=== PATIENT | female | born 1930 | race Caucasian/White ===

== ENCOUNTER 2017-09-06 14:17 | Inpatient (IN) | payer MEDICARE ==
[2017-09-06] VITALS (9 sets, daily range): BP systolic 149–166; BP diastolic 57–82
[~2017-09-06] VITALS: Ht 160 cm; Wt 71.5 kg
[~2017-09-06 14:17] MED LIST: B121000 MCG/1 IM; CITALOPRAM20 MG PO; COQ-1030 MG PO; FUROSEMIDE20 M1 PO; K-TAB10 MEQ PO; K-TAB20 MEQ PO; LEVEMIR10 ML SC; LEVOTHYROXIN0.075 M1 PO; LISINOPRIL10 M1 PO; MASON NATURAL600 MG PO; METFORMIN1000 MG PO; MULTI VITAMINS1 TAB PO; OMEPRAZOLE20 M2 PO; TAMSULOSIN HCL0.4 MG PO; TOPROL XL25 MG PO; TOPROL XL50 M1 PO
[2017-09-06 15:02] LABS: BASO % 0.2 % (0.0-1.0); EOS % 0.4 % (1.0-4.0); HEMATOCRIT 24.3 % (37.0-47.0); HEMOGLOBIN 6.4 g/dl (12.0-16.0); LYMPH # 0.7 10*3/uL (1.3-4.4); LYMPH % 6.8 % (27.0-41.0); MEAN CELL VOLUME 72.8 fl (81.0-99.0); MEAN CORPUSCULAR HGB 19.2 pg (27.0-31.0); MEAN CORPUSCULAR HGB CONC 26.3 g/dl (33.0-37.0); MONO # 0.6 10*3/uL (0.1-1.0); MONO % 5.8 % (3.0-9.0); NEUT # 8.8 10*3/uL (2.3-7.9); NEUT % 86.4 % (47.0-73.0); PLATELET COUNT AUTOMATED 272 10*3/uL (130-400); RED BLOOD COUNT 3.34 10*6/uL (4.10-5.10); RED CELL DISTRI WIDTH 17.5 % (0-14.5); WHITE BLOOD COUNT 10.2 10*3/uL (4.8-10.8)
[2017-09-06 15:11] LABS: ACT PARTIAL THROMBO TIME 26.5 SECONDS (20.8-31.5)
[2017-09-06 15:18] LABS: CREATININE 1.72 mg/dL (0.55-1.02); POTASSIUM 4.4 mmol/L (3.5-5.1); TOTAL PROTEIN 6.9 gm/dL (6.4-8.2)
[2017-09-06 15:21] LABS: TROPONIN I 0.473 ng/ml (<0.045)
--- NOTE | 2017-09-06 16:29 | NUR ---
ASPIRIN WAS NOT GIVEN TO PATIENT PER DR LOPEZ, STATES THAT PATIENT IS ANEMIC AND THAT THE ASPIRIN IS NOT TO BE GIVEN AT THIS TIME.
--- NOTE | 2017-09-06 16:40 | NUR ---
REPORT GIVEN TO OTILIA RUTH AT THIS TIME. PATIENT TAKEN TO THE 4TH FLOOR BY THIS NURSE AND MINOO POOL.
--- NOTE | 2017-09-06 16:57 | NUR ---
OTILIA RUTH AT BEDSIDE WITH PATIENT AT THIS TIME.
--- NOTE | 2017-09-06 17:00 | NUR ---
A 86, admitted to , under the services of JANNA Gomez DO with a diagnosis of ANEMIA,RENAL INSUFFICIENCY,ELEVATED TROPONIN. Chief complaint is SHORTNESS OF BREATH. Patient arrived via bed from ER. Monitor applied. Initial assessment completed. Vital signs taken and recorded. JANNA GOMEZ DO notified of admission to the unit. Orders received. See assessment for past medical history, medications and allergies. Patient and/or family oriented to unit. [facility] visitation policy reviewed. Clothing/patient valuable form completed. SEBASTIAN VASQUES R
[2017-09-06 17:09] LABS: IRON 20 ug/dL (50-170); TOTAL IRON BINDING CAPACITY 412 ug/dl (250-450)
--- NOTE | 2017-09-06 17:26 | NUR ---
NOTIFIED OF CRITICAL LACTIC ACID LAB. MAINTENANCE FLUIDS ARE BEING ORDERED.
--- NOTE | 2017-09-06 17:49 | NUR ---
PATIENT IS RESTING IN BED WITH FAMILY AT THE BEDSIDE. PATIENT IS AWAKE AND ALERT AND PLEASANT DURING ASSESSMENT. PATIENT IS FATIGUED BUT ABLE TO RESPOND APPROPRIATELY. NO FURTHER REQUESTS AT THIS TIME. CALL LIGHT SYSTEM REINFORCED.
--- NOTE | 2017-09-06 17:57 | NUR ---
CALLED DR. KRISHNAMURTHY ANSWERING SERVICE CALLED REGARDING CONSULT THEY WILL PAGE HIM.
--- NOTE | 2017-09-06 18:15 | NUR ---
PT RESTING IN BED STARTED BLOOD AT THIS TIME. CALL LIGHT IN REACH.
--- NOTE | 2017-09-06 18:18 | NUR ---
DR. KRISHNAMURTHY CALLED ORDERS GIVEN. GET RECORDS FROM CLEAR.
--- NOTE | 2017-09-06 18:23 | NUR ---
DR. LAUREL AGUILAR
--- NOTE | 2017-09-06 18:41 | NUR ---
DR. CASTRO NOTIFIED OF CRIT TROPONIN LAB, RELAYED MESSAGE TO .
[2017-09-06] MEDS ORDERED: NORCO 5-325 TA1 EACH PO (18:49)
--- NOTE | 2017-09-06 20:35 | NUR ---
DR BETH AWARE OF CRITICAL LACTIC ACID OF 4.0. NO ORDERS
--- NOTE | 2017-09-06 21:32 | NUR ---
DR KRISHNAMURTHY ANSWERING SERVICE AWARE OF CRITICAL LAB RESULT. AWAITING CALL BACK
[2017-09-07] VITALS: BP 142/61
[2017-09-07 00:30] LABS: HEMATOCRIT 26.1 % (37.0-47.0); HEMOGLOBIN 7.4 g/dl (12.0-16.0)
--- NOTE | 2017-09-07 01:05 | NUR ---
DR KRISHNAMURTHY'S ANSWERING SERVICE AWARE OF CRITICAL LAB VALUE
--- NOTE | 2017-09-07 01:10 | NUR ---
DR KRISHNAMURTHY AWARE OF CRITICAL TROPONIN. STATES TO ORDER ANOTHER TROPONIN IN AM
--- NOTE | 2017-09-07 03:18 | NUR ---
PATIENT RESTING IN BED WITH NO S/S OF DISTRESS. RESPS EASY AND REGULAR. BED IN LOWEST POSITION, CALL LIGHT IN REACH
--- NOTE | 2017-09-07 03:52 | NUR ---
24 HR chart check completed.
[2017-09-07 06:53] LABS: BASO % 0.2 % (0.0-1.0); EOS # 0.2 10*3/uL (0.0-0.4); EOS % 2.2 % (1.0-4.0); HEMATOCRIT 26.1 % (37.0-47.0); HEMOGLOBIN 7.4 g/dl (12.0-16.0); LYMPH # 1.3 10*3/uL (1.3-4.4); MEAN CELL VOLUME 75.4 fl (81.0-99.0); MEAN CORPUSCULAR HGB 21.4 pg (27.0-31.0); MEAN CORPUSCULAR HGB CONC 28.4 g/dl (33.0-37.0); MEAN PLATELET VOLUME 11.1 fl (9.6-12.3); MONO # 0.6 10*3/uL (0.1-1.0); MONO % 7.7 % (3.0-9.0); NEUT # 6.1 10*3/uL (2.3-7.9); NEUT % 73.5 % (47.0-73.0); PLATELET COUNT AUTOMATED 236 10*3/uL (130-400); RED BLOOD COUNT 3.46 10*6/uL (4.10-5.10); RED CELL DISTRI WIDTH 17.6 % (0-14.5); WHITE BLOOD COUNT 8.3 10*3/uL (4.8-10.8)
[2017-09-07 06:58] LABS: ALBUMIN 2.7 gm/dl (3.1-4.5); CREATININE 1.63 mg/dL (0.55-1.02); PHOSPHOROUS 3.4 mg/dL (2.5-4.9); POTASSIUM 3.9 mmol/L (3.5-5.1); TOTAL PROTEIN 6.3 gm/dL (6.4-8.2)
[2017-09-07 07:03] LABS: FREE T4 1.33 ng/dl (0.76-1.46); THYROID STIM HORMONE (HS) 1.29 uIU/ml (0.358-4.75)
[2017-09-07 07:06] LABS: TROPONIN I 0.777 ng/ml (<0.045)
--- NOTE | 2017-09-07 07:10 | NUR ---
DR. LOPEZ NOTIFIED OF CRITICAL LAB VALUES.
[2017-09-07 07:14] LABS: VITAMIN D, 25-HYDROXY 24.9 ng/mL (30-100)
[2017-09-07 08:00] VITALS: BP 158/80
--- NOTE | 2017-09-07 09:00 | NUR ---
Xray Tech in to talk to patient. Patient states lives at home with daughter and son in law. There are o steps in the home. Physician: josephine alvarado Pharmacy: [facility] services: none Patient's level of ADLs: MINIMAL ASSIST Patient has working utilities: all working DME: walker Follow-up physician's appointment after d/c: will be made by hospitalist nurse director upon discharge Does patient want to access PORTAL?: no Discharge plan discussed with patient, patient states she lives at home with her daughter and son in law, states she uses a walker for ambulation, discussed with her a short term long-term for rehab prior to going back home, patient refused, also discussed with her VNA and she refused this, patient stated that she and her daughter have been talking about both of these and if they decided on either one she would let case management know. KEL MALIK
[2017-09-07 12:00] VITALS: BP 148/52
[2017-09-07 15:32] LABS: BILIRUBIN NEGATIVE (NEGATIVE); BLOOD 1+ (NEGATIVE); CLARITY CLOUDY (CLEAR); COLOR YELLOW (YELLOW); GLUCOSE NEGATIVE (NEGATIVE); KETONE NEGATIVE (NEGATIVE); SPECIFIC GRAVITY 1.015 (1.005-1.030)
[2017-09-07 15:33] LABS: LEUKO ESTERASE 3+ (NEGATIVE); NITRITE NEGATIVE (NEGATIVE); UROBILINOGEN 0.2 E.U./dl (0.2-1.0)
[2017-09-07 15:43] LABS: BACTERIA 4+; WBC TNTC wbc/hpf (0-5)
[2017-09-07 16:00] VITALS: BP 154/74
[2017-09-07 20:00] VITALS: BP 125/98
--- NOTE | 2017-09-07 20:40 | NUR ---
ANSWERING SERVICE CALLED DOM TO PT. HAVING ABNORMAL HEART RHYTHM, AWAITING CALL BACK.
--- NOTE | 2017-09-07 20:41 | NUR ---
DR. KRISHNAMURTHY RETURNED CALL, SEE NEW ORDERS.
[2017-09-07 21:07] LABS: POTASSIUM 4.1 mmol/L (3.5-5.1)
--- NOTE | 2017-09-07 22:17 | NUR ---
PRN RESTORIL GIVEN FOR PT. C/O INSOMNIA.
--- NOTE | 2017-09-07 23:30 | NUR ---
ASSUMED CARE FOR THIS PT AT THIS TIME. RESPS LABORED. PT DENIES SOB. RESPS 22 ON RA. O2 VIA NC AT 2L APPLIED. ENCOURAGED PT TO LEAVE ON TO HELP SLOW BREATHING. PT AGREEABLE. NO OTHER C/O VOICED.
[2017-09-08] VITALS: BP 160/80
--- NOTE | 2017-09-08 00:54 | NUR ---
24 HR chart check completed.
[2017-09-08 06:35] LABS: BASO % 0.2 % (0.0-1.0); EOS # 0.2 10*3/uL (0.0-0.4); LYMPH % 8.9 % (27.0-41.0); MEAN CELL VOLUME 75.5 fl (81.0-99.0); MEAN CORPUSCULAR HGB 22.2 pg (27.0-31.0); MEAN CORPUSCULAR HGB CONC 29.4 g/dl (33.0-37.0); MEAN PLATELET VOLUME 10.1 fl (9.6-12.3); MONO # 0.6 10*3/uL (0.1-1.0); MONO % 5.7 % (3.0-9.0); NEUT # 9.1 10*3/uL (2.3-7.9); NEUT % 82.8 % (47.0-73.0); PLATELET COUNT AUTOMATED 221 10*3/uL (130-400); RED BLOOD COUNT 4.32 10*6/uL (4.10-5.10); RED CELL DISTRI WIDTH 18.2 % (0-14.5)
[2017-09-08 06:37] LABS: HEMATOCRIT 32.6 % (37.0-47.0); HEMOGLOBIN 9.6 g/dl (12.0-16.0)
--- NOTE | 2017-09-08 06:40 | NUR ---
PT RESTING QUIETLY IN BED AT THIS TIME. NO S/S OF DISTRESS NOTED.
[2017-09-08 06:43] LABS: ALBUMIN 2.9 gm/dl (3.1-4.5); CREATININE 1.75 mg/dL (0.55-1.02); POTASSIUM 3.8 mmol/L (3.5-5.1); TOTAL PROTEIN 6.7 gm/dL (6.4-8.2)
[2017-09-08 08:00] VITALS: BP 184/70
--- NOTE | 2017-09-08 09:06 | NUR ---
MED REC REVIEWED WITH [facility]. NO CHANGES NECESSARY, MEDS UP TO DATE.
--- NOTE | 2017-09-08 09:08 | NUR ---
DR THOMSON NOTIFIED OF UP TO DATE MED REC, AND PT'S BP OF 184/70, GLUCOSE 269 ON CMP, PT NOT CURRENTLY ON ANY HOME MEDS.
--- NOTE | 2017-09-08 09:26 | NUR ---
case management visits with patient, patient very drowsy this am, will talk with family regarding discharge plans
--- NOTE | 2017-09-08 10:13 | NUR ---
URINE CULTURE SENT AT THIS TIME.
[2017-09-08 12:00] VITALS: BP 157/68
--- NOTE | 2017-09-08 12:35 | NUR ---
PT. EVALUATED FOR HOME O2. PULSE OX ON R/A WITH PT. SITTING UP AT BEDSIDE 88%. PT. PLACED ON 2L O2 AND WALKED WITH ASSIST AND WALKER ACROSS THE SALAZAR ON 2L O2. PULSE OX WAS 96%. HEART RATE PRE 96, POST 98. B/P PRE 171/68, POST 167/90. RN NOTIFIED AND [facility] ALSO CALLED. O2 ORDER RECEIVED. RECOVERY PULSE OX 100 ON 2L.
--- NOTE | 2017-09-08 12:55 | NUR ---
DR MAN UPDATED ON PT QUALIFYING FOR CONTINUOUS HOME O2 AT 2L NC.
--- NOTE | 2017-09-08 14:49 | NUR ---
case management talked with patient and daughter regarding short term shelter or VNA. patient couldn't decide what she wanted to do, she and daughter talked and a decision to go to [facility] was made. supply chain planner will send referral to [facility]
--- NOTE | 2017-09-08 15:00 | NUR ---
SPOKE WITH DR MAGDA FLYNN PT'S BLOOD GLUCOSE AND CONCERNS REGARDING NO SLIDING SCALE OR DIABETIC MEDS ORDERED WITH HER STARTING ON STEROIDS, STATES SHE WOULD ORDER A SLIDING SCALE.
--- NOTE | 2017-09-08 15:01 | NUR ---
Patient requested referral be made to [facility], Contacted [facility] and faxed referral. Waiting on PT evaluation/acceptance.
[2017-09-08 16:00] VITALS: BP 178/80
--- NOTE | 2017-09-08 16:46 | NUR ---
DR MAN NOTIFIED OF CRITICALLY HIGH BLOOD GLUCOSE OF 533. ORDER TO FOLLOW SLIDING SCALE.
[2017-09-08 20:00] VITALS: BP 154/78
--- NOTE | 2017-09-08 20:02 | NUR ---
PT. RESTING IN BED WATCHING TELEVISION AT THIS TIME. HOB IS ELEVATED, CALL LIGHT WITHIN REACH, BED LOW AND WHEELS LOCKED. PT. HAS NC DELIVERING 2 LPM WITH EASY AND REGULAR RESPIRATIONS. NO DISTRESS IS NOTED AND NO COMPLAINTS AT THIS TIME WELL. SEE SHIFT ASSESSMENT.
--- NOTE | 2017-09-08 21:55 | NUR ---
SPOKE WITH DR. STEPHANIE DOWELL IN REGARDS TO PT. BLOOD GLUCOSE READING >400, SEE NEW ORDERS.
[2017-09-09] VITALS: BP 156/76
--- NOTE | 2017-09-09 02:57 | NUR ---
24 HR chart check completed.
[2017-09-09 06:16] LABS: HEMATOCRIT 31.9 % (37.0-47.0); HEMOGLOBIN 9.2 g/dl (12.0-16.0); MEAN CELL VOLUME 76.7 fl (81.0-99.0); MEAN CORPUSCULAR HGB 22.1 pg (27.0-31.0); MEAN CORPUSCULAR HGB CONC 28.8 g/dl (33.0-37.0); MEAN PLATELET VOLUME 9.9 fl (9.6-12.3); NUCLEATED RED BLOOD CELL 0.2 % (0.0-0.0); PLATELET COUNT AUTOMATED 201 10*3/uL (130-400); RED BLOOD COUNT 4.16 10*6/uL (4.10-5.10)
[2017-09-09 06:58] LABS: CREATININE 1.78 mg/dL (0.55-1.02); POTASSIUM 3.9 mmol/L (3.5-5.1)
[2017-09-09 07:03] LABS: TOTAL CELLS COUNTED 100 #CELLS
[2017-09-09 07:04] LABS: MICROCYTOSIS SLIGHT; OVALOCYTES FEW; PLATELET SUFFICIENCY NORMAL (NORMAL); POLYCHROMASIA SLIGHT
[2017-09-09 08:00] VITALS: BP 169/81
--- NOTE | 2017-09-09 08:57 | NUR ---
PHYSICAL THERAPY PAtient evaluated on 4, full evaluation to follow. Continue with PT as per plan of care with fall and acute debility precautions. Will require SNF for impaired mobility in order to return to home at (I) PLOF. PAtient is moderate complexity via chart review, tests and evaluation: [id number]. Thank you for this referral. Jaci Palacios,PT
[2017-09-09] MEDS ORDERED: NORCO 5-325 TA1 EACH PO (10:12)
[2017-09-09] MEDS ORDERED: B121000 MCG/1 IM (10:12)
[2017-09-09] MEDS ORDERED: DUONEB 3 MG/3 ML3 M1 NEB (10:12)
[2017-09-09] MEDS ORDERED: Insulin Lispro, Reco SC (10:12)
[2017-09-09] MEDS ORDERED: VITAMIN D-32000 UNI1 PO (10:12)
[2017-09-09] MEDS ORDERED: CIPRO250 MG PO (10:22)
--- NOTE | 2017-09-09 11:02 | NUR ---
Faxed physical therapy eval, PASS/RR completed in [employer] system. Patient has been accepted to [facility] and can go today.
[2017-09-09 12:00] VITALS: BP 156/68
--- NOTE | 2017-09-09 12:00 | NUR ---
PT SITTING UP IN CHAIR, NO DISTRESS NOTED. EXPLAINED TO PT ABOUT PLAN FOR DISCHARGE AND WHEN SHE WILL BE LEAVING FOR [facility], ASKED IF SHE'D LIKE ME TO CALL HER DAUGHTER, STATES SHE WILL CALL HER. NO DISTRESS NOTED, O2 REMAINS INTACT AT 2L NC. CALL LIGHT WITHIN REACH.
--- NOTE | 2017-09-09 13:01 | NUR ---
PHYSICAL THERAPY Thecil seen this PM 1:1 for her therapy treatment. Pt was up in her bedside chair, nurse present taking Pt BS. Transfer sit/stand MOD A X 1, standing balance with wheeled walker MIN A X 1. Then gait 23' X 1, into Pt's bathroom MOD A X 1. Followed by gait total 55' X 1, W/W and MOD CAT SCAN TECHNOLOGIST X 1, with verbal cueing for gait, walker, turn safety MOD A X 1. Pt back up in her bedside chair, call light, phone. End with act Ex to bilateral LE of GENARO vogel's ankle pumps X 20 reps each. OLIVE MARS DATABASE REPORT WRITER.
--- NOTE | 2017-09-09 13:11 | NUR ---
SPOKE WITH PT'S DAUGHTER REGARDING ALLERGY TO CIPRO, STATES SHE BROKE OUT INTO A RASH AND HAD TROUBLE BREATHING, UPDATED DR MAN PT WAS GOING TO BE DISCHARGED ON CIPRO.
[2017-09-09] MEDS ORDERED: DOXYCYCLINE100 M3 PO (13:26)
--- NOTE | 2017-09-09 13:50 | NUR ---
NURSE TO NURSE REPORT GIVEN TO TULIO BROOKS [facility].
--- NOTE | 2017-09-09 14:22 | NUR ---
Discharge instructions reviewed with patient/family. Patient receptive and verbalizes understanding. Follow-up care arranged. Written instructions given to patient/family. IV site removed. Pt left via [facility]. CHRISTOPHER DOBBINS
--- NOTE | 2017-09-10 08:03 | NUR ---
PHYSICAL THERAPY CO-SIGN I approve of the Phyical Therapy notes written above. TONNY THOMAS PT
== END 2017-09-09 14:22 | disposition other institution (70) | DRG 871 ==
LOC: ED 14:17 → EDHOLD 16:02 → 4E 16:02
PROVIDERS: Internal Medicine; Internal Medicine Cardiovascular Disease; Physician Assistant; ADMIT Internal Medicine
PROC: 30233N1 Transfusion of Nonautologous Red Blood Cells into Peripheral Vein, Percutaneous Approach (ICD-10-PCS; principal; 2017-09-06)
DX: A41.9 Sepsis, unspecified organism (principal); E43 Unspecified severe protein-calorie malnutrition; J96.01 Acute respiratory failure with hypoxia; J90 Pleural effusion, not elsewhere classified; J18.9 Pneumonia, unspecified organism; E11.22 Type 2 diabetes mellitus with diabetic chronic kidney disease; N18.4 Chronic kidney disease, stage 4 (severe); E11.65 Type 2 diabetes mellitus with hyperglycemia; Q25.3 Supravalvular aortic stenosis; E11.649 Type 2 diabetes mellitus with hypoglycemia without coma; E87.2 Acidosis; D50.9 Iron deficiency anemia, unspecified; I35.0 Nonrheumatic aortic (valve) stenosis; Z79.4 Long term (current) use of insulin; R74.8 Abnormal levels of other serum enzymes; I12.9 Hypertensive chronic kidney disease with stage 1 through stage 4 chronic kidney disease, or unspecified chronic kidney disease; E03.9 Hypothyroidism, unspecified; E78.5 Hyperlipidemia, unspecified; E53.8 Deficiency of other specified B group vitamins; E66.3 Overweight; Z51.5 Encounter for palliative care; Z66 Do not resuscitate; F03.90 Unspecified dementia, unspecified severity, without behavioral disturbance, psychotic disturbance, mood disturbance, and anxiety; E87.8 Other disorders of electrolyte and fluid balance, not elsewhere classified; E55.9 Vitamin D deficiency, unspecified; Z90.5 Acquired absence of kidney; Z88.2 Allergy status to sulfonamides; Z88.6 Allergy status to analgesic agent; Z88.8 Allergy status to other drugs, medicaments and biological substances; Z79.899 Other long term (current) drug therapy; Z90.49 Acquired absence of other specified parts of digestive tract; Z90.710 Acquired absence of both cervix and uterus; Z87.442 Personal history of urinary calculi; Z82.49 Family history of ischemic heart disease and other diseases of the circulatory system; Z80.0 Family history of malignant neoplasm of digestive organs; Z85.828 Personal history of other malignant neoplasm of skin; Z83.3 Family history of diabetes mellitus; Z68.27 Body mass index [BMI] 27.0-27.9, adult

== ENCOUNTER 2017-11-15 14:06 | Inpatient (IN) | payer MEDICARE ==
[~2017-11-15] VITALS: Ht 162.5 cm; Wt 70.9 kg
--- NOTE | ~2017-11-15 | PROC NOTE ---
[place], [place] PROCEDURE NOTE NAME: DARIA NATH UNIT #: [id number] ROOM: [facility] DOCTOR: CARLOS BLOCK MD,CARLOS BIRTHDATE: [birth year] DOS: 11/19/2017 PROCEDURE: Bronchoscopy. PREOPERATIVE DIAGNOSES: The patient with severe nonproductive cough, not resolving. The patient has maximum medical therapy with acute exacerbation of chronic obstructive pulmonary disease/bronchial asthma. POSTOPERATIVE DIAGNOSES: The patient with severe infection, mucus plug, and endobronchial tree bilaterally with finding of acute tracheobronchitis and obstructive lesions. PROCEDURE DESCRIPTION: Informed consent was obtained for the patient. The patient was brought to the OR and placed in supine position. Conscious sedation administered by Anesthesia Department. After achieving appropriate sedation, airway introduced into the mouth. Bronchoscope advanced to the airway into laryngeal area. Epiglottis and vocal cords were seen. The bronchoscope advanced through vocal cord and tracheal lumen. The tracheal lumen was identified and noted moderate thick mucus secretion suctioned out to the radha level. The radha was noted sharp. Right and left endobronchial tree for the patient was inspected at subsegmental level bilaterally. All the segments of the patient was seen, impacted with very thick mucus, which were cleared out and sent for culture. No obstructive lesions noted. Procedure was well tolerated by the patient without difficulty. Postoperative findings will be discussed with the patient once the patient recovered the effects of acute sedation. CARLOS GONZALEZ MD CM:PROCNOTE:PROCEDURE NOTE [id number] CARLOS BLOCK MD
--- NOTE | ~2017-11-15 | EKG ---
[place], [place] ELECTROCARDIOGRAM REPORT NAME: DARIA NATH UNIT #: [id number] ROOM: [facility] DOCTOR: CARLOS BLOCK MD,CARLOS BIRTHDATE: [birth year] DOS: 11/18/2017 ELECTROCARDIOGRAM TIME: 11:10 a.m. INTERPRETATION: Normal sinus rhythm noted with heart rate 97 beats per minute. Nonspecific ST-T changes were also noted. CARLOS GONZALEZ MD CM:EKGRPT:ELECTROCARDIOGRAM REPORT [id number] CARLOS BLOCK MD
--- NOTE | ~2017-11-15 | PR ---
[place], [place] PROGRESS NOTE NAME: DARIA NATH UNIT #: [id number] ROOM: 501 DOCTOR: CARLOS KWON MD BIRTHDATE: [birth year] DOS: 11/19/2017 SUBJECTIVE: The patient was independently seen and examined with [id number] encounter, history was confirmed. Physical examination was completed. Labs were reviewed. The assessment of the patient for today was personally made and any change in the treatment were personally done as well. The note done by the medical unit secretary was improved. She continued to experience nonproductive cough which has not been improving. She was n.p.o. past midnight. Bronchoscopy was planned today. Continue IV Solu-Medrol and bronchodilator treatment. Denies edema or pain of the lower extremity. Denies symptoms of bloating, nausea, vomiting, constipation. Denies any abnormal skin rashes or lesions. Denies any headache or diplopia. PHYSICAL EXAMINATION: VITAL SIGNS: The patient shows a normal temperature, respiratory rate of 18, heart rate of 96, blood pressure of 142/83-187/93. The pulse oxygen saturation on room air was 95% saturation. HEENT: No acute change. NECK: Supple. CARDIOVASCULAR: S1, S2 audible. LUNGS: Moderate decreased breath sounds with expiratory wheezing without any crackles. ABDOMEN: Soft, nontender. Bowel sounds present. CENTRAL NERVOUS SYSTEM: For the patient was noted without any gross focal neurologic deficit. MUSCULOSKELETAL: No deformities. SKIN: No lesions or rashes. LABORATORY DATA: No labs were done today. IMPRESSION: Persistent acute exacerbation of chronic obstructive pulmonary disease with mucous impaction and acute tracheobronchitis. The patient currently treated with maximal medical therapy, preop for the bronchoscopy today to be done. PLAN OF TREATMENT: Continuation other previous treatment. The patient without any changes. Any modification in the treatment that should be done after bronchoscopy. [place], [place] PROGRESS NOTE NAME: DARIA NATH UNIT #: [id number] ROOM: [facility] DOCTOR: CARLOS KWON MD BIRTHDATE: [birth year] CARLOS GONZALEZ MD CM:PNTRANS 1617 CARLOS BLOCK MD 11/20/173 interface
--- NOTE | ~2017-11-15 | PR ---
[place], [place] PROGRESS NOTE NAME: DARIA NATH UNIT #: [id number] ROOM: 501 DOCTOR: CARLOS BLOCK MD,CARLOS BIRTHDATE: [birth year] DOS: 11/21/2017 PULMONARY PROGRESS REPORT SUBJECTIVE: The patient has been showing continued progressive reduction in respiratory symptom, reduction in the coughing, wheezing. Denies symptoms of chest pain or any abdominal pain. OBJECTIVE: VITAL SIGNS: For the patient which has been recorded showed normal temperature, respiratory rate 20, heart rate of 90, blood pressure 118/76-172/80. The pulse oxygen saturation on room air 100% saturation. HEENT: No acute change. NECK: Supple. CARDIOVASCULAR: S1, S2 audible. LUNGS: The patient has mild expiratory wheezing bilaterally. There were no crackles. ABDOMEN: Soft, nontender. EXTREMITIES: Without any edema. LABORATORY DATA: Cultures of the bronchial washings were noted with moderate growth of Enterobacter cloacae sensitive to several antibiotics including the third generation cephalosporins, ciprofloxacin, and tetracycline. IMPRESSION: 1. Acute tracheobronchitis. The patient with secondary gram-negative infection. The patient currently being treated with the doxycycline, which should continue to improve and resolve the problem. 2. Acute exacerbation of bronchial asthma should also resolve for the patient with a corticosteroid. The dose will be gradually decreased based on the improvement in the respiratory status. Usual care. CARLOS GONZALEZ MD CM:PNTRANS 1511 [id number] CARLOS BLOCK MD 11/21/17 182 interface
--- NOTE | ~2017-11-15 | PR ---
[place], [place] PROGRESS NOTE NAME: DARIA NATH UNIT #: [id number] ROOM: 501 DOCTOR: CARLOS BLOCK MD,CARLOS BIRTHDATE: [birth year] DOS: 11/20/2017 SUBJECTIVE: She has a bronchoscopy done yesterday, reduction in the cough noted from previous level. Denies symptoms of chest pain. Shortness of breath has been improving. Denies any symptoms of chest pain. The patient was noted with a partial reduction in the wheezing as well. OBJECTIVE: VITAL SIGNS: Normal temperature, respirations 18, heart rate 98, blood pressure 161/77. Pulse oxygen saturation on room air 99% saturation. HEENT: Age-related changes. NECK: Supple. CARDIOVASCULAR: S1 audible. LUNGS: Scattered wheezing, no crackles. ABDOMEN: Soft, nontender. EXTREMITIES: Without any edema. LABORATORY DATA: Gram stain bronchial washing today, many white blood cell, few epithelial cells, and moderate gram-positive cocci in pairs. Moderate growth of gram-negative bacilli was isolated in the preliminary bronchial washing culture. The patient is pending final identification and results. IMPRESSION: 1. Acute tracheobronchitis was noted present time with acute tracheobronchitis gram-negative infection. Reduction in symptoms noted with current bronchoscopy. 2. The patient with acute exacerbation of chronic obstructive pulmonary disease as well. PLAN OF TREATMENT: Continue corticosteroids, bronchodilators. No change in antibiotics until the culture results will be finalized. Usual treatment changes to be done based on progression of the illness. CARLOS GONZALEZ MD CM:PNTRANS 1750 7 CARLOS BLOCK MD 11/21/17137 interface
--- NOTE | ~2017-11-15 | CON ---
[place], [place] REPORT OF CONSULTATION NAME: [facility]IA [facility]ATH [id number] UNIT #: [id number] ROOM: 501 DOCTOR: RICHARD BETH DO BIRTHDATE: [birth year] DOS: 11/18/2017 HISTORY OF PRESENT ILLNESS: The patient came to the hospital with a chief complaint of a urinary tract infection and sent to the hospital by her primary care physician. The patient was admitted on November 15 and was started on antibiotics. The patient developed some symptoms of cough and shortness of breath and postnasal drip. Pulmonary care was consulted for optimization of respiratory care. The patient was seen and examined today on 11/18/2017. The patient reports that her shortness of breath and cough and wheezing have been ongoing for about 2 weeks and has had multiple sick contacts with family members over the holidays. The patient denies any chest pain, history of COPD or asthma. The patient denies smoking history. PAST MEDICAL HISTORY: Anxiety, depression, aortic stenosis, B12 deficiency, basal cell carcinoma, chronic kidney disease stage 4, combined systolic and diastolic heart failure, depression, diabetes mellitus with long-term insulin use, GERD, hyperlipidemia, hypertension, hypothyroid, iron deficiency anemia, protein calorie malnutrition, urinary incontinence, vitamin D insufficiency. PAST SURGICAL HISTORY: History of breast biopsy, history of renal stent, history of appendectomy, history of cholecystectomy, history of hysterectomy and unilateral nephrectomy. SOCIAL HISTORY: The patient denies history of alcohol, tobacco or illicit drug use. FAMILY HISTORY: Father had liver cancer. Mother also had liver cancer and diabetes. ALLERGIES: CIPRO, CODEINE and MACROBID. HOME MEDICATIONS: Include vitamin D, citalopram, B12, doxycycline, furosemide, [place], Levemir, DuoNeb, levothyroxine, lisinopril, metoprolol, multivitamin, omeprazole, potassium chloride and CoQ10. REVIEW OF SYSTEMS: GENERAL APPEARANCE: The patient complains of fatigue and general malaise. HEENT: The patient denies vision change, sore throat and earache. The patient denies dysphagia. RESPIRATORY: The patient complains of shortness of breath, cough and wheezing. Denies productive cough. CARDIOVASCULAR: The patient denies palpitations, chest pain, worsening edema in upper or lower extremities. ABDOMEN: The patient denies abdominal pain, change in bowel or bladder habits, blood in the stool or blood in the urine, nausea or vomiting. MUSCULOSKELETAL: The patient denies joint pain. SKIN: The patient denies any rash or erythema. LABORATORY DATA: White count 6.2, hemoglobin 10.8, hematocrit 36.2, platelets 138. Chemistries: Sodium 138, potassium 5.4, chloride 105, carbon dioxide 22, [place], [place] REPORT OF CONSULTATION NAME: DARIA NATH UNIT #: [id number] ROOM: [facility] DOCTOR: RICHARD BETH DO BIRTHDATE: [birth year] BUN 43, creatinine 1.8, glucose 161. Urine cultures are positive for Klebsiella. Blood cultures were negative. Chest x-ray yesterday 11/17/2017 showed small left pleural effusion with mild cardiomegaly, stable from previous imaging. PHYSICAL EXAMINATION: VITAL SIGNS: Temperature 97.5, pulse 93, respirations 20, blood pressure 178/81, pulse ox 99% on room air. GENERAL APPEARANCE: The patient is alert and oriented times 3, in mild distress. HEENT: Head is atraumatic, normocephalic. Eyes are clear. No injection, no drainage. Nares are patent. Oral mucosa is moist. No erythema or discharge in the oropharynx, no exudate. NECK: Supple, nontender. RESPIRATORY: Mild expiratory wheezes and crackles were appreciated bilaterally. No rhonchi. CARDIOVASCULAR: S1, S2 noted. Regular rate and rhythm, no murmurs, gallops or rubs. ABDOMEN: Soft, nontender with positive bowel sounds. EXTREMITIES: No edema, no erythema. NEUROLOGICAL: No focal deficits. Cranial nerves are grossly intact. IMPRESSION: 1. Reactive airway disease with acute exacerbation with pneumonitis. 2. Urinary tract infection, positive for Klebsiella. 3. Diabetic with hyperglycemia. 4. Chronic kidney disease stage 4. 5. Aortic stenosis. 6. Gastroesophageal reflux disease. TREATMENT PLAN: Continue with diuresis. The patient is on doxycycline p.o. and Mucinex b.i.d. 1200, DuoNeb q.4 hours p.r.n. shortness of breath. We will take patient for a bronchoscopy tomorrow to assess for mucus plugs. I anticipate the patient will be ready for discharge the day after the bronchoscopy. Otherwise, no change in current plan. Thank you for this consultation. RICHARD BETH DO [place], [place] REPORT OF CONSULTATION NAME: DARIA NATH UNIT #: [id number] ROOM: [facility] DOCTOR: RICHARD BETH DO BIRTHDATE: [birth year] CARLOS GONZALEZ MD CM:CONSTR:REPORT OF CONSULTATION 1220 11/18/17 1252 interface
--- NOTE | ~2017-11-15 | PR ---
[place], [place] PROGRESS NOTE NAME: DARIA NATH UNIT #: [id number] ROOM: 501 DOCTOR: IGNACIA RICHARD BIRTHDATE: [birth year] DOS: 11/19/2017 SUBJECTIVE: The patient was seen and examined in the surgical suite prior to the bronchoscopy that was performed this morning. The patient was alert and oriented x 3, in no acute distress. The patient has no new complaints today. LABORATORY DATA: No new labs were drawn this morning. Micro, bronchial washing is pending culture. Urine was positive for Klebsiella. Stool was negative for C. diff. Blood cultures remain negative from the 8th. PHYSICAL EXAMINATION: GENERAL: The patient is alert and oriented x 3, in no acute distress. HEENT: Eyes were clear. No injection. Nares were patent. Mucous membranes were moist. NECK: Supple, nontender. CARDIAC: Regular rate and rhythm. No murmurs, gallops or rubs. S1 and S2 noted. PULMONARY: Mild expiratory wheezes. No rales or rhonchi. ABDOMEN: Soft, nontender with positive bowel sounds. EXTREMITIES: No edema, erythema, clubbing or cyanosis ____ extremities. IMPRESSION: 1. Acute on chronic exacerbation of bronchial asthma with mucus plugging, likely secondary to viral infection. 2. Left pleural fluid, likely secondary to pulmonary infection. 3. Persistent severe nonproductive cough. TREATMENT PLAN: Mucus plugs were removed via bronchoscopy. The patient expected to improve dramatically after bronchoscopy. We will evaluate the patient tomorrow for improvement, continue with current respiratory therapy including doxycycline, Lasix, guaifenesin, Solu-Medrol 40 b.i.d., DuoNeb. We will reassess the patient in the morning for improvement of respiratory function. RICHARD BETH DO [place], [place] PROGRESS NOTE NAME: DARIA NATH UNIT #: [id number] ROOM: [facility] DOCTOR: RICHARD BETH DO BIRTHDATE: [birth year] CARLOS GONZALEZ MD CM:MALDONADO 1314 RICHARD BETH DO 11/19/17 2305 interface
--- NOTE | ~2017-11-15 | PR ---
[place], [place] PROGRESS NOTE NAME: DARIA NATH UNIT #: [id number] ROOM: 501 DOCTOR: CARLOS BLOCK MD,CARLOS BIRTHDATE: [birth year] DOS: 11/22/2017 SUBJECTIVE: The patient has been noted without any acute new respiratory complaints at this time. The coughing has been progressively resolving, not completely resolved 100%. The wheezing noted decreased. There were symptoms of chest pain. OBJECTIVE: VITAL SIGNS: Normal temperature, respiratory rate 20, heart rate 96, blood pressure 150/70. The pulse oxygen saturation recorded as 98% on room air. HEENT: No acute change. NECK: Supple. CARDIOVASCULAR: S1, S2 is audible. LUNGS: The patient was noted without any wheezing or crackles at the present time. ABDOMEN: Soft, nontender. EXTREMITIES: The patient was noted without any acute edema. IMPRESSION: Progressive and gradual resolution of acute tracheobronchitis with gram-negative infection and exacerbation of bronchial asthma/chronic obstructive pulmonary disease. PLAN OF TREATMENT: The patient could be discharged home on oral antibiotics, bronchodilators, and other treatment plan. Usual care, other supportive plan of therapy and care as in progress. CARLOS GONZALEZ MD CM:PNTRANS [id number] CARLOS BLOCK MD 11/22/17 2315 interface
--- NOTE | ~2017-11-15 | CON ---
[place], [place] REPORT OF CONSULTATION NAME: [facility]IA [facility]ATH [id number] UNIT #: [id number] ROOM: [facility] DOCTOR: CARLOS BLOCK MDCARLOS BIRTHDATE: [birth year] DOS: 11/18/2017 REQUESTING PHYSICIAN: Hospitalist service. REASON FOR CONSULTATION: For assessment of ongoing respiratory symptom for severe cough and others. The patient was independently seen and examined with [id number] encounter. History was personally completed. The physical examination performed. All the laboratory reviewed. Assessment and management of the patient in today's consultation was personally made. The consultation for the patient which was dictated by the medical surgery nurse was approved as well. HISTORY OF PRESENT ILLNESS: This is an 87-year-old elderly female patient who has been admitted to the hospital under care of hospitalist services. The patient has reported symptoms of urinary tract infection and initially treated with the IV antibiotic. She has reported symptoms of increased shortness of breath, coughing, chest congestion, which occurred prior to that ongoing for the past couple of weeks. The patient has not been reported any symptoms of chest pain or hemoptysis. The patient stated multiple family members has been noted sick with the current illness as well in the last several days over the holidays. REVIEW OF SYSTEMS: Completed by the medical surgery nurse. She agreed with past medical history, surgical history, social history, family history of this patient completed by the medical surgery nurse as well. HOME MEDICATIONS: Reported use of vitamin D, citalopram, doxycycline, ____ prescription, Lasix, [place], Levemir, DuoNeb, Synthroid, lisinopril, metoprolol, multivitamin, CoQ10, omeprazole and potassium chloride. DRUG ALLERGIES: ALLERGY TO CIPROFLOXACIN, CODEINE, SULFA DRUGS AND MACROBID. PHYSICAL EXAMINATION: GENERAL: This 87-year-old female who has been currently noted to be awake and alert without any distress. Height of 5 feet 4 inches, weight of 157 pounds, BMI 27. VITAL SIGNS: Recorded as a normal temperature, respiratory rate recorded at 20, heart rate of 100-93, blood pressure 156/90 and 173/88. Pulse oxygen saturation on room air was noted 99% saturation of oxygen at rest on room air. HEENT: Head was atraumatic. Eyes, nonicterus. NECK: Supple. CARDIOVASCULAR: S1, S2 is audible. LUNGS: The patient was noted with moderate decreased breath sounds noted with expiratory wheezing in the lungs bilaterally. There were no crackles heard. ABDOMEN: Soft, flat, nontender. EXTREMITIES: The patient noted without any edema. MUSCULOSKELETAL: No deformities. CENTRAL NERVOUS SYSTEM: Cranial nerves 2-12 intact. SKIN: No focal deficit. [place], [place] REPORT OF CONSULTATION NAME: DARIA NATH UNIT #: [id number] ROOM: [facility] DOCTOR: CARLOS KWON MD BIRTHDATE: [birth year] LABORATORY DATA: CBC: 11/17/2017, WBC count normal, hemoglobin 10.8, hematocrit 32.6, platelet count normal. The blood culture from 11/15/2017 showed no bacterial growth. Stool for C. diff toxin ____ noted as negative. CMP this morning, BUN 43, creatinine 1.82, glucose 161, potassium 5.4. Admission CMP shows BUN 29, creatinine 1.89, glucose 262 at that time. Review of the chest x-ray that was done on admission 11/15/2017 noted with small left-sided pleural fluid with cardiomegaly as well. Chest x-ray that was completed yesterday ____ personally reviewed with the patient shows pleural fluid remains persistent in the left side, which appeared to be small. There were no pulmonary infiltration. Mild scoliosis of the thoracic spine was visible. The right lung appeared to be clear. IMPRESSION: 1. The patient who has been currently admitted to the hospital noted with ongoing acute exacerbation of bronchial asthma. The patient is very likely with persistent mucous infection not responding to treatment. The symptom of chronicity has been present for the last couple of weeks. It may started with a viral infection including influenza infection as a consideration. 2. Left pleural fluid related to current pulmonary infection. Other etiologies require to be closely monitored for further as well. 3. The patient with severe persistent nonproductive cough as well. There were no past diagnosis of pulmonary disease has been described by the patient in the past. PLAN OF MANAGEMENT: Continue maximizing medical therapy with use of the high dose of Mucinex, bronchodilators, use of the flutter valve. However, it has not been noted effective to treat the current problem. The patient was assessed and will benefit from therapeutic bronchoscopy, which will be done tomorrow morning. The risks and benefits of the procedure have been discussed with patient in detail. Pleural fluid at this time just simply needs to be monitored in case of increase of pleural fluid. The patient would benefit from further assessment such as thoracentesis and analyze the pleural fluid accordingly. Other usual care, plan of therapy and management as well. Addition treatment changes need to be done based on progression of illness. CARLOS GONZALEZ MD CM:CONSTR:REPORT OF CONSULTATION 1613 11/18/17 [id number] interface
[~2017-11-15 14:06] MED LIST changes: +CIPRO250 MG PO; +DOXYCYCLINE100 M3 PO; +DUONEB 3 MG/3 ML3 M1 NEB; +Insulin Lispro, Reco SC; +NORCO 5-325 TA1 EACH PO; +VITAMIN D-32000 UNI1 PO
[2017-11-15 14:44] VITALS: BP 161/69
[2017-11-15 15:33] LABS: BASO % 0.2 % (0.0-1.0); EOS % 0.2 % (1.0-4.0); HEMATOCRIT 38.6 % (37.0-47.0); HEMOGLOBIN 11.9 g/dl (12.0-16.0); LYMPH # 0.9 10*3/uL (1.3-4.4); LYMPH % 19.4 % (27.0-41.0); MEAN CELL VOLUME 89.6 fl (81.0-99.0); MEAN CORPUSCULAR HGB 27.6 pg (27.0-31.0); MEAN CORPUSCULAR HGB CONC 30.8 g/dl (33.0-37.0); MEAN PLATELET VOLUME 10.1 fl (9.6-12.3); MONO # 0.3 10*3/uL (0.1-1.0); MONO % 7.2 % (3.0-9.0); NEUT # 3.3 10*3/uL (2.3-7.9); NEUT % 72.6 % (47.0-73.0); PLATELET COUNT AUTOMATED 138 10*3/uL (130-400); RED BLOOD COUNT 4.31 10*6/uL (4.10-5.10); RED CELL DISTRI WIDTH 19.8 % (0-14.5); WHITE BLOOD COUNT 4.6 10*3/uL (4.8-10.8)
[2017-11-15 15:47] LABS: CREATININE 1.81 mg/dL (0.55-1.02); POTASSIUM 4.5 mmol/L (3.5-5.1); TOTAL PROTEIN 6.9 gm/dL (6.4-8.2)
[2017-11-15 17:13] VITALS: BP 150/75
[2017-11-15] MEDS ORDERED: CITALOPRAM10 MG PO (17:37)
[2017-11-15] MEDS ORDERED: FEOSOL325 MG PO (17:39)
[2017-11-15] MEDS ORDERED: LIPITOR10 MG PO (17:39)
[2017-11-15 18:50] VITALS: BP 163/76
[2017-11-15 19:02] VITALS: BP 163/76
[2017-11-15] MEDS ORDERED: ONE DAILY1 EACH PO (19:35)
[2017-11-15] MEDS ORDERED: [UNRECOGNIZED DRUG - REMARK] PO (19:36)
[2017-11-15] MEDS ORDERED: MASON NATURAL600 MG PO (19:37)
[2017-11-16] VITALS: BP 144/74
[2017-11-16 07:54] LABS: HEMATOCRIT 38.5 % (37.0-47.0); HEMOGLOBIN 11.9 g/dl (12.0-16.0); LYMPH # 0.9 10*3/uL (1.3-4.4); LYMPH % 21.7 % (27.0-41.0); MEAN CELL VOLUME 92.5 fl (81.0-99.0); MEAN CORPUSCULAR HGB 28.6 pg (27.0-31.0); MEAN CORPUSCULAR HGB CONC 30.9 g/dl (33.0-37.0); MEAN PLATELET VOLUME 10.7 fl (9.6-12.3); MONO # 0.1 10*3/uL (0.1-1.0); MONO % 2.3 % (3.0-9.0); NEUT # 3.3 10*3/uL (2.3-7.9); NEUT % 75.8 % (47.0-73.0); PLATELET COUNT AUTOMATED 131 10*3/uL (130-400); RED BLOOD COUNT 4.16 10*6/uL (4.10-5.10); RED CELL DISTRI WIDTH 19.9 % (0-14.5); WHITE BLOOD COUNT 4.3 10*3/uL (4.8-10.8)
[2017-11-16 08:00] VITALS: BP 164/78
[2017-11-16 08:24] LABS: ACT PARTIAL THROMBO TIME 27.8 SECONDS (20.8-31.5); INTERNATIONAL NORM RATIO 0.9 (2.0-3.5)
[2017-11-16 08:31] LABS: ALBUMIN 2.8 gm/dl (3.1-4.5); CREATININE 1.71 mg/dL (0.55-1.02); PHOSPHOROUS 3.6 mg/dL (2.5-4.9); POTASSIUM 5.1 mmol/L (3.5-5.1); TOTAL PROTEIN 6.8 gm/dL (6.4-8.2)
[2017-11-16 12:00] VITALS: BP 149/68
[2017-11-16 14:16] LABS: BILIRUBIN NEGATIVE (NEGATIVE); BLOOD 3+ (NEGATIVE); CLARITY CLOUDY (CLEAR); COLOR YELLOW (YELLOW); GLUCOSE 3+ (NEGATIVE); KETONE TRACE (NEGATIVE); LEUKO ESTERASE 2+ (NEGATIVE); NITRITE NEGATIVE (NEGATIVE); PH 6.5 (5.0-9.0); SPECIFIC GRAVITY 1.015 (1.005-1.030); UROBILINOGEN 0.2 E.U./dl (0.2-1.0)
[2017-11-16 14:29] LABS: BACTERIA 4+; RBC TNTC rbc/hpf (0-2); WBC TNTC wbc/hpf (0-5)
[2017-11-16 16:00] VITALS: BP 133/66
[2017-11-16 20:00] VITALS: BP 160/76
[2017-11-17] VITALS: BP 144/69
[2017-11-17 06:55] LABS: HEMATOCRIT 36.2 % (37.0-47.0); HEMOGLOBIN 10.8 g/dl (12.0-16.0); MEAN CELL VOLUME 92.3 fl (81.0-99.0); MEAN CORPUSCULAR HGB 27.6 pg (27.0-31.0); MEAN CORPUSCULAR HGB CONC 29.8 g/dl (33.0-37.0); MEAN PLATELET VOLUME 10.5 fl (9.6-12.3); PLATELET COUNT AUTOMATED 138 10*3/uL (130-400); RED BLOOD COUNT 3.92 10*6/uL (4.10-5.10); RED CELL DISTRI WIDTH 19.9 % (0-14.5); WHITE BLOOD COUNT 6.2 10*3/uL (4.8-10.8)
[2017-11-17 07:04] LABS: CREATININE 1.82 mg/dL (0.55-1.02); POTASSIUM 5.1 mmol/L (3.5-5.1)
[2017-11-17 07:34] LABS: TOTAL CELLS COUNTED 100 #CELLS
[2017-11-17 07:35] LABS: BURR CELLS FEW; PLATELET SUFFICIENCY NORMAL (NORMAL)
[2017-11-17 07:59] VITALS: BP 146/80
[2017-11-17 12:00] VITALS: BP 168/70
[2017-11-17 16:00] VITALS: BP 155/71
[2017-11-17 20:00] VITALS: BP 173/83
[2017-11-18] VITALS: BP 173/88
[2017-11-18 07:39] LABS: CREATININE 1.82 mg/dL (0.55-1.02); POTASSIUM 5.4 mmol/L (3.5-5.1)
[2017-11-18 07:49] VITALS: BP 178/81
[2017-11-18 12:00] VITALS: BP 166/90
[2017-11-18 16:00] VITALS: BP 174/84
[2017-11-18 20:00] VITALS: BP 166/74
[2017-11-19] VITALS (8 sets, daily range): BP systolic 142–196; BP diastolic 67–112
[2017-11-20] VITALS: BP 155/77
[2017-11-20 07:34] VITALS: BP 166/74
[2017-11-20 11:32] VITALS: BP 161/77
[2017-11-20 14:07] LABS: ACID FAST SMEAR Negative (.); ACID FAST SPEC PROCESSING Concentration (.)
[2017-11-20 15:36] VITALS: BP 170/76
[2017-11-20 20:00] VITALS: BP 158/78
[2017-11-21] VITALS: BP 158/80
[2017-11-21 06:11] LABS: CREATININE 1.58 mg/dL (0.55-1.02); POTASSIUM 4.6 mmol/L (3.5-5.1)
[2017-11-21 08:00] VITALS: BP 172/80
[2017-11-21 12:00] VITALS: BP 118/76
[2017-11-21 16:00] VITALS: BP 133/63
[2017-11-21 20:00] VITALS: BP 143/61
[2017-11-22] VITALS: BP 150/70
[2017-11-22 08:00] VITALS: BP 161/88
[2017-11-22] MEDS ORDERED: CITALOPRAM HYDR20 MG PO (09:56)
[2017-11-22] MEDS ORDERED: AMLODIPINE BESYL5 MG PO (09:56)
[2017-11-22] MEDS ORDERED: PREDNISONE10 MG PO (09:56)
[2017-11-22] MEDS ORDERED: MUCINEX ER600 MG PO (09:56)
[2017-11-22] MEDS ORDERED: DOXYCYCLINE100 M3 PO (09:56)
== END 2017-11-22 13:46 | disposition home or self-care (01) | DRG 689 ==
LOC: ED 14:06 → EDHOLD 16:24 → 5E 16:24
PROVIDERS: Family Medicine; Internal Medicine Critical Care Medicine; Nurse Practitioner Family; Student in an Organized Health Care Education/Training Program
PROC: 0BC98ZZ Extirpation of Matter from Lingula Bronchus, Via Natural or Artificial Opening Endoscopic (ICD-10-PCS; principal; 2017-11-19)
PROC: 0BC78ZZ Extirpation of Matter from Left Main Bronchus, Via Natural or Artificial Opening Endoscopic (ICD-10-PCS; principal; 2017-11-19)
PROC: 0BC88ZZ Extirpation of Matter from Left Upper Lobe Bronchus, Via Natural or Artificial Opening Endoscopic (ICD-10-PCS; principal; 2017-11-19)
PROC: 0BCB8ZZ Extirpation of Matter from Left Lower Lobe Bronchus, Via Natural or Artificial Opening Endoscopic (ICD-10-PCS; principal; 2017-11-19)
PROC: 0BC68ZZ Extirpation of Matter from Right Lower Lobe Bronchus, Via Natural or Artificial Opening Endoscopic (ICD-10-PCS; principal; 2017-11-19)
PROC: 0BC58ZZ Extirpation of Matter from Right Middle Lobe Bronchus, Via Natural or Artificial Opening Endoscopic (ICD-10-PCS; principal; 2017-11-19)
PROC: 0BC48ZZ Extirpation of Matter from Right Upper Lobe Bronchus, Via Natural or Artificial Opening Endoscopic (ICD-10-PCS; principal; 2017-11-19)
PROC: 0BC18ZZ Extirpation of Matter from Trachea, Via Natural or Artificial Opening Endoscopic (ICD-10-PCS; principal; 2017-11-19)
PROC: 0BC38ZZ Extirpation of Matter from Right Main Bronchus, Via Natural or Artificial Opening Endoscopic (ICD-10-PCS; principal; 2017-11-19)
PROC: 0BC28ZZ Extirpation of Matter from Carina, Via Natural or Artificial Opening Endoscopic (ICD-10-PCS; principal; 2017-11-19)
DX: N39.0 Urinary tract infection, site not specified (principal); J18.9 Pneumonia, unspecified organism; E44.0 Moderate protein-calorie malnutrition; T17.890A Other foreign object in other parts of respiratory tract causing asphyxiation, initial encounter; E11.22 Type 2 diabetes mellitus with diabetic chronic kidney disease; J44.0 Chronic obstructive pulmonary disease with (acute) lower respiratory infection; N18.4 Chronic kidney disease, stage 4 (severe); E87.1 Hypo-osmolality and hyponatremia; J45.901 Unspecified asthma with (acute) exacerbation; E11.65 Type 2 diabetes mellitus with hyperglycemia; I50.42 Chronic combined systolic (congestive) and diastolic (congestive) heart failure; I13.0 Hypertensive heart and chronic kidney disease with heart failure and stage 1 through stage 4 chronic kidney disease, or unspecified chronic kidney disease; Q25.3 Supravalvular aortic stenosis; J44.1 Chronic obstructive pulmonary disease with (acute) exacerbation; Z79.2 Long term (current) use of antibiotics; N13.30 Unspecified hydronephrosis; Z68.29 Body mass index [BMI] 29.0-29.9, adult; Z66 Do not resuscitate; I35.0 Nonrheumatic aortic (valve) stenosis; N20.0 Calculus of kidney; E53.8 Deficiency of other specified B group vitamins; K21.9 Gastro-esophageal reflux disease without esophagitis; J20.8 Acute bronchitis due to other specified organisms; D72.810 Lymphocytopenia; Z51.5 Encounter for palliative care; D64.9 Anemia, unspecified; E03.9 Hypothyroidism, unspecified; B96.89 Other specified bacterial agents as the cause of diseases classified elsewhere; E55.9 Vitamin D deficiency, unspecified; B34.9 Viral infection, unspecified; J20.9 Acute bronchitis, unspecified; X58.XXXA Exposure to other specified factors, initial encounter; E78.5 Hyperlipidemia, unspecified; F32.9 Major depressive disorder, single episode, unspecified; F41.8 Other specified anxiety disorders; R32 Unspecified urinary incontinence; B96.1 Klebsiella pneumoniae [K. pneumoniae] as the cause of diseases classified elsewhere; Z16.24 Resistance to multiple antibiotics; Z88.2 Allergy status to sulfonamides; Z88.1 Allergy status to other antibiotic agents; Z88.5 Allergy status to narcotic agent; Z88.8 Allergy status to other drugs, medicaments and biological substances; Z90.49 Acquired absence of other specified parts of digestive tract; Z90.710 Acquired absence of both cervix and uterus; Z90.5 Acquired absence of kidney; Z80.0 Family history of malignant neoplasm of digestive organs; Z83.3 Family history of diabetes mellitus; Z79.4 Long term (current) use of insulin; Z79.1 Long term (current) use of non-steroidal anti-inflammatories (NSAID); Z79.899 Other long term (current) drug therapy; Y93.89 Activity, other specified; Y92.89 Other specified places as the place of occurrence of the external cause; Y99.8 Other external cause status

== ENCOUNTER 2017-12-16 10:59 | Inpatient (IN) | payer MEDICARE ==
[~2017-12-16] VITALS: Ht 160 cm; Wt 72.2 kg
[~2017-12-16 10:59] MED LIST changes: +AMLODIPINE BESYL5 MG PO; +CITALOPRAM HYDR20 MG PO; +CITALOPRAM10 MG PO; +FEOSOL325 MG PO; +LIPITOR10 MG PO; +MUCINEX ER600 MG PO; +ONE DAILY1 EACH PO; +PREDNISONE10 MG PO; +[UNRECOGNIZED DRUG - REMARK] PO
[2017-12-16 11:03] VITALS: BP 148/84
[2017-12-16 13:10] VITALS: BP 138/80
[2017-12-16 15:45] VITALS: BP 141/66
[2017-12-16 16:00] VITALS: BP 141/66
[2017-12-16 17:23] LABS: BASO % 0.2 % (0.0-1.0); EOS % 0.5 % (1.0-4.0); HEMATOCRIT 28.5 % (37.0-47.0); LYMPH # 0.5 10*3/uL (1.3-4.4); LYMPH % 8.6 % (27.0-41.0); MEAN CELL VOLUME 91.3 fl (81.0-99.0); MEAN CORPUSCULAR HGB 28.8 pg (27.0-31.0); MEAN CORPUSCULAR HGB CONC 31.6 g/dl (33.0-37.0); MEAN PLATELET VOLUME 9.5 fl (9.6-12.3); MONO # 0.4 10*3/uL (0.1-1.0); MONO % 5.8 % (3.0-9.0); NEUT # 5.1 10*3/uL (2.3-7.9); NEUT % 84.1 % (47.0-73.0); PLATELET COUNT AUTOMATED 180 10*3/uL (130-400); RED BLOOD COUNT 3.12 10*6/uL (4.10-5.10); RED CELL DISTRI WIDTH 15.9 % (0-14.5); WHITE BLOOD COUNT 6.1 10*3/uL (4.8-10.8)
[2017-12-16 17:35] LABS: ACT PARTIAL THROMBO TIME 30.3 SECONDS (20.8-31.5)
[2017-12-16 17:42] LABS: ALBUMIN 2.1 gm/dl (3.1-4.5); CREATININE 1.74 mg/dL (0.55-1.02); POTASSIUM 4.4 mmol/L (3.5-5.1); TOTAL PROTEIN 5.5 gm/dL (6.4-8.2)
[2017-12-16 17:46] LABS: TROPONIN I 0.064 ng/ml (<0.045)
[2017-12-16 20:00] VITALS: BP 125/95
[2017-12-17] VITALS: BP 140/72
[2017-12-17 06:55] LABS: BASO % 0.3 % (0.0-1.0); EOS # 0.1 10*3/uL (0.0-0.4); EOS % 1.7 % (1.0-4.0); LYMPH # 0.4 10*3/uL (1.3-4.4); LYMPH % 6.9 % (27.0-41.0); MEAN CELL VOLUME 92.7 fl (81.0-99.0); MEAN CORPUSCULAR HGB 28.8 pg (27.0-31.0); MEAN PLATELET VOLUME 10.6 fl (9.6-12.3); MONO # 0.4 10*3/uL (0.1-1.0); MONO % 6.4 % (3.0-9.0); NEUT % 83.9 % (47.0-73.0); PLATELET COUNT AUTOMATED 203 10*3/uL (130-400); RED BLOOD COUNT 3.13 10*6/uL (4.10-5.10); RED CELL DISTRI WIDTH 15.9 % (0-14.5)
[2017-12-17 07:28] LABS: ACT PARTIAL THROMBO TIME 30.8 SECONDS (20.8-31.5)
[2017-12-17 07:29] LABS: POTASSIUM 4.4 mmol/L (3.5-5.1)
[2017-12-17 08:00] VITALS: BP 136/64
[2017-12-17 08:02] LABS: ALBUMIN 2.1 gm/dl (3.1-4.5); CREATININE 1.84 mg/dL (0.55-1.02); PHOSPHOROUS 3.1 mg/dL (2.5-4.9); TOTAL PROTEIN 5.7 gm/dL (6.4-8.2)
[2017-12-17 08:05] LABS: THYROID STIM HORMONE (HS) 10.8 uIU/ml (0.358-4.75)
[2017-12-17 10:03] LABS: VITAMIN D, 25-HYDROXY 13.4 ng/mL (30-100)
[2017-12-17 12:00] VITALS: BP 136/50
[2017-12-17 16:00] VITALS: BP 148/76
[2017-12-17 20:00] VITALS: BP 143/54
[2017-12-18] VITALS: BP 132/56
[2017-12-18 09:29] VITALS: BP 137/56
[2017-12-18 12:00] VITALS: BP 118/50
[2017-12-18 16:00] VITALS: BP 143/70
[2017-12-18 20:00] VITALS: BP 116/62
[2017-12-19] VITALS: BP 127/55
[2017-12-19 05:11] LABS: CREATININE 1.93 mg/dL (0.55-1.02); POTASSIUM 3.7 mmol/L (3.5-5.1)
[2017-12-19 08:00] VITALS: BP 134/57
[2017-12-19 08:23] LABS: BASO % 0.2 % (0.0-1.0); EOS % 0.2 % (1.0-4.0); HEMATOCRIT 33.6 % (37.0-47.0); HEMOGLOBIN 10.5 g/dl (12.0-16.0); LYMPH # 0.5 10*3/uL (1.3-4.4); LYMPH % 4.9 % (27.0-41.0); MEAN CELL VOLUME 91.6 fl (81.0-99.0); MEAN CORPUSCULAR HGB 28.6 pg (27.0-31.0); MEAN CORPUSCULAR HGB CONC 31.3 g/dl (33.0-37.0); MEAN PLATELET VOLUME 9.5 fl (9.6-12.3); MONO # 0.6 10*3/uL (0.1-1.0); MONO % 5.3 % (3.0-9.0); NEUT # 9.2 10*3/uL (2.3-7.9); NEUT % 87.5 % (47.0-73.0); PLATELET COUNT AUTOMATED 255 10*3/uL (130-400); RED BLOOD COUNT 3.67 10*6/uL (4.10-5.10); RED CELL DISTRI WIDTH 15.3 % (0-14.5); WHITE BLOOD COUNT 10.5 10*3/uL (4.8-10.8)
[2017-12-19 08:48] LABS: BILIRUBIN NEGATIVE (NEGATIVE); BLOOD NEGATIVE (NEGATIVE); CLARITY CLOUDY (CLEAR); COLOR YELLOW (YELLOW); GLUCOSE NEGATIVE (NEGATIVE); KETONE NEGATIVE (NEGATIVE); LEUKO ESTERASE 3+ (NEGATIVE); NITRITE NEGATIVE (NEGATIVE); UROBILINOGEN 0.2 E.U./dl (0.2-1.0)
[2017-12-19 09:00] LABS: BACTERIA 3+; WBC TNTC wbc/hpf (0-5)
[2017-12-19 11:41] VITALS: BP 145/50
[2017-12-19 16:00] VITALS: BP 131/54
[2017-12-19 20:00] VITALS: BP 121/59
[2017-12-20] VITALS: BP 116/72
[2017-12-20 04:00] VITALS: BP 130/48
[2017-12-20 07:17] LABS: BASO % 0.3 % (0.0-1.0); EOS # 0.1 10*3/uL (0.0-0.4); EOS % 2.1 % (1.0-4.0); HEMATOCRIT 27.9 % (37.0-47.0); HEMOGLOBIN 8.7 g/dl (12.0-16.0); LYMPH # 0.7 10*3/uL (1.3-4.4); LYMPH % 11.3 % (27.0-41.0); MEAN CELL VOLUME 91.5 fl (81.0-99.0); MEAN CORPUSCULAR HGB 28.5 pg (27.0-31.0); MEAN CORPUSCULAR HGB CONC 31.2 g/dl (33.0-37.0); MEAN PLATELET VOLUME 9.7 fl (9.6-12.3); MONO # 0.4 10*3/uL (0.1-1.0); MONO % 7.1 % (3.0-9.0); NEUT # 4.8 10*3/uL (2.3-7.9); NEUT % 76.9 % (47.0-73.0); PLATELET COUNT AUTOMATED 237 10*3/uL (130-400); RED BLOOD COUNT 3.05 10*6/uL (4.10-5.10); RED CELL DISTRI WIDTH 15.5 % (0-14.5); WHITE BLOOD COUNT 6.2 10*3/uL (4.8-10.8)
[2017-12-20 07:46] LABS: ALBUMIN 1.9 gm/dl (3.1-4.5); CREATININE 1.81 mg/dL (0.55-1.02); PHOSPHOROUS 3.5 mg/dL (2.5-4.9); POTASSIUM 4.1 mmol/L (3.5-5.1); TOTAL PROTEIN 5.6 gm/dL (6.4-8.2)
[2017-12-20 08:00] VITALS: BP 142/60
[2017-12-20 12:00] VITALS: BP 135/70
[2017-12-20 16:00] VITALS: BP 120/96
[2017-12-20 20:00] VITALS: BP 126/61
[2017-12-21] VITALS: BP 130/57
[2017-12-21 07:02] LABS: BASO % 0.2 % (0.0-1.0); EOS # 0.1 10*3/uL (0.0-0.4); EOS % 0.7 % (1.0-4.0); HEMATOCRIT 27.9 % (37.0-47.0); HEMOGLOBIN 8.7 g/dl (12.0-16.0); LYMPH % 10.4 % (27.0-41.0); MEAN CELL VOLUME 91.8 fl (81.0-99.0); MEAN CORPUSCULAR HGB 28.6 pg (27.0-31.0); MEAN CORPUSCULAR HGB CONC 31.2 g/dl (33.0-37.0); MONO # 0.5 10*3/uL (0.1-1.0); NEUT # 7.8 10*3/uL (2.3-7.9); NEUT % 81.7 % (47.0-73.0); PLATELET COUNT AUTOMATED 291 10*3/uL (130-400); RED BLOOD COUNT 3.04 10*6/uL (4.10-5.10); WHITE BLOOD COUNT 9.6 10*3/uL (4.8-10.8)
[2017-12-21 07:32] LABS: CREATININE 1.91 mg/dL (0.55-1.02); POTASSIUM 4.4 mmol/L (3.5-5.1)
[2017-12-21 07:58] VITALS: BP 128/76
[2017-12-21 12:25] VITALS: BP 122/74
[2017-12-21 16:00] VITALS: BP 143/63
[2017-12-21 20:00] VITALS: BP 151/70
[2017-12-21 23:55] VITALS: BP 120/57
[2017-12-22 06:31] LABS: BASO % 0.2 % (0.0-1.0); EOS # 0.1 10*3/uL (0.0-0.4); EOS % 1.2 % (1.0-4.0); HEMATOCRIT 29.2 % (37.0-47.0); HEMOGLOBIN 8.9 g/dl (12.0-16.0); LYMPH # 1.1 10*3/uL (1.3-4.4); LYMPH % 10.9 % (27.0-41.0); MEAN CORPUSCULAR HGB 28.3 pg (27.0-31.0); MEAN CORPUSCULAR HGB CONC 30.5 g/dl (33.0-37.0); MEAN PLATELET VOLUME 9.8 fl (9.6-12.3); MONO # 0.5 10*3/uL (0.1-1.0); MONO % 5.1 % (3.0-9.0); NEUT # 8.3 10*3/uL (2.3-7.9); NEUT % 79.8 % (47.0-73.0); PLATELET COUNT AUTOMATED 284 10*3/uL (130-400); RED BLOOD COUNT 3.14 10*6/uL (4.10-5.10); RED CELL DISTRI WIDTH 15.9 % (0-14.5); WHITE BLOOD COUNT 10.4 10*3/uL (4.8-10.8)
[2017-12-22 07:06] LABS: ALBUMIN 1.9 gm/dl (3.1-4.5); CREATININE 1.87 mg/dL (0.55-1.02); POTASSIUM 4.3 mmol/L (3.5-5.1)
[2017-12-22 07:07] LABS: TOTAL PROTEIN 5.9 gm/dL (6.4-8.2)
[2017-12-22 08:18] VITALS: BP 126/84
[2017-12-22] MEDS ORDERED: ZOSYN 3.373.375 GM/5 IV (10:49)
[2017-12-22 12:25] VITALS: BP 122/74
== END 2017-12-22 15:45 | disposition other institution (70) | DRG 562 ==
LOC: ED 10:59 → EDHOLD 14:39 → 5E 14:39
PROVIDERS: Family Medicine; Internal Medicine; Internal Medicine Nephrology
PROC: B548ZZA Ultrasonography of Superior Vena Cava, Guidance (ICD-10-PCS; principal; 2017-12-21)
PROC: 02HV33Z Insertion of Infusion Device into Superior Vena Cava, Percutaneous Approach (ICD-10-PCS; principal; 2017-12-21)
DX: S42.474A Nondisplaced transcondylar fracture of right humerus, initial encounter for closed fracture (principal); E43 Unspecified severe protein-calorie malnutrition; N18.4 Chronic kidney disease, stage 4 (severe); I13.0 Hypertensive heart and chronic kidney disease with heart failure and stage 1 through stage 4 chronic kidney disease, or unspecified chronic kidney disease; I50.42 Chronic combined systolic (congestive) and diastolic (congestive) heart failure; N39.0 Urinary tract infection, site not specified; Z68.28 Body mass index [BMI] 28.0-28.9, adult; E11.65 Type 2 diabetes mellitus with hyperglycemia; T68.XXXA Hypothermia, initial encounter; K21.9 Gastro-esophageal reflux disease without esophagitis; F32.9 Major depressive disorder, single episode, unspecified; F41.9 Anxiety disorder, unspecified; Z79.4 Long term (current) use of insulin; E78.5 Hyperlipidemia, unspecified; E53.8 Deficiency of other specified B group vitamins; E03.9 Hypothyroidism, unspecified; I35.0 Nonrheumatic aortic (valve) stenosis; E55.9 Vitamin D deficiency, unspecified; D50.9 Iron deficiency anemia, unspecified; R32 Unspecified urinary incontinence; Z96.0 Presence of urogenital implants; S20.229A Contusion of unspecified back wall of thorax, initial encounter; S80.00XA Contusion of unspecified knee, initial encounter; E11.649 Type 2 diabetes mellitus with hypoglycemia without coma; W01.0XXA Fall on same level from slipping, tripping and stumbling without subsequent striking against object, initial encounter; Y93.01 Activity, walking, marching and hiking; E11.22 Type 2 diabetes mellitus with diabetic chronic kidney disease; Z66 Do not resuscitate; Z51.5 Encounter for palliative care; Z87.442 Personal history of urinary calculi; Z88.2 Allergy status to sulfonamides; Z88.1 Allergy status to other antibiotic agents; Z88.8 Allergy status to other drugs, medicaments and biological substances; Z79.899 Other long term (current) drug therapy; Z87.01 Personal history of pneumonia (recurrent); Z90.49 Acquired absence of other specified parts of digestive tract; Z90.5 Acquired absence of kidney; Z90.710 Acquired absence of both cervix and uterus; Z80.8 Family history of malignant neoplasm of other organs or systems; Z83.3 Family history of diabetes mellitus; Z82.49 Family history of ischemic heart disease and other diseases of the circulatory system; Y92.098 Other place in other non-institutional residence as the place of occurrence of the external cause; Y99.8 Other external cause status

== ENCOUNTER 2018-01-17 10:53 | Inpatient (IN) | payer MEDICARE ==
[~2018-01-17] VITALS: Ht 162.6 cm; Wt 73.5 kg
[~2018-01-17 10:53] MED LIST changes: +CO-ENZYME Q101 EACH PO; -LEVEMIR10 ML SC; +LEVEMIR100 UNIT/1 SC; +ZOSYN 3.373.375 GM/5 IV; -[UNRECOGNIZED DRUG - REMARK] PO
[2018-01-17 11:09] VITALS: BP 104/49
[2018-01-17 11:43] LABS: HEMATOCRIT 28.9 % (37.0-47.0); MEAN CELL VOLUME 91.5 fl (81.0-99.0); MEAN CORPUSCULAR HGB 28.5 pg (27.0-31.0); MEAN CORPUSCULAR HGB CONC 31.1 g/dl (33.0-37.0); MEAN PLATELET VOLUME 9.7 fl (9.6-12.3); PLATELET COUNT AUTOMATED 360 10*3/uL (130-400); RED BLOOD COUNT 3.16 10*6/uL (4.10-5.10)
[2018-01-17 11:47] LABS: WHITE BLOOD COUNT 39.6 10*3/uL (4.8-10.8)
[2018-01-17 11:54] LABS: CREATININE 3.89 mg/dL (0.55-1.02); POTASSIUM 5.2 mmol/L (3.5-5.1)
[2018-01-17 12:00] VITALS: BP 108/61
[2018-01-17 12:01] LABS: PLATELET SUFFICIENCY NORMAL (NORMAL); POLYCHROMASIA SLIGHT; TOTAL CELLS COUNTED 100 #CELLS; TOXIC GRANULATION SLIGHT
[2018-01-17 12:28] LABS: BILIRUBIN NEGATIVE (NEGATIVE); BLOOD 3+ (NEGATIVE); CLARITY CLOUDY (CLEAR); COLOR YELLOW (YELLOW); GLUCOSE NEGATIVE (NEGATIVE); KETONE TRACE (NEGATIVE); LEUKO ESTERASE 3+ (NEGATIVE); NITRITE NEGATIVE (NEGATIVE); PH 5.5 (5.0-9.0); UROBILINOGEN 0.2 E.U./dl (0.2-1.0)
[2018-01-17 12:51] LABS: BACTERIA 1+; EPITHELIAL CELLS 15-20; RBC 21-30 rbc/hpf (0-2); WBC TNTC wbc/hpf (0-5); YEAST 4+
[2018-01-17 12:54] LABS: ALBUMIN 1.7 gm/dl (3.1-4.5); BILIRUBIN, DIRECT 0.1 mg/dL (0.0-0.2); TOTAL PROTEIN 6.6 gm/dL (6.4-8.2); TROPONIN I 0.021 ng/ml (<0.045)
[2018-01-17] MEDS ORDERED: DULCOLAX10 M1 SC (13:39)
[2018-01-17] MEDS ORDERED: FLEET MINERAL133 ML PO (13:40)
[2018-01-17] MEDS ORDERED: MOM30 M1 PO (13:43)
[2018-01-17] MEDS ORDERED: PERCOCET 5-3251 EACH PO (13:45)
[2018-01-17] MEDS ORDERED: VITAMIN C500 M8 PO (13:46)
[2018-01-17] MEDS ORDERED: RENAL-VITE TAB0.8 MG PO (13:46)
[2018-01-17] MEDS ORDERED: ZINC-220220 MG PO (13:47)
[2018-01-17 13:49] VITALS: BP 109/45
[2018-01-17] MEDS ORDERED: NOVOLOG100 UNIT/1 SC (13:50)
[2018-01-17 15:40] LABS: POTASSIUM 5.4 mmol/L (3.5-5.1)
[2018-01-17 16:00] VITALS: BP 108/56
[2018-01-17 20:11] VITALS: BP 103/47
[2018-01-18] VITALS (7 sets, daily range): BP systolic 90–149; BP diastolic 44–66
[2018-01-18 08:08] LABS: HEMATOCRIT 27.2 % (37.0-47.0); HEMOGLOBIN 8.5 g/dl (12.0-16.0); MEAN CELL VOLUME 92.5 fl (81.0-99.0); MEAN CORPUSCULAR HGB 28.9 pg (27.0-31.0); MEAN CORPUSCULAR HGB CONC 31.3 g/dl (33.0-37.0); MEAN PLATELET VOLUME 9.4 fl (9.6-12.3); NUCLEATED RED BLOOD CELL 0.1 % (0.0-0.0); PLATELET COUNT AUTOMATED 374 10*3/uL (130-400); RED BLOOD COUNT 2.94 10*6/uL (4.10-5.10); RED CELL DISTRI WIDTH 17.2 % (0-14.5)
[2018-01-18 08:27] LABS: ALBUMIN 1.5 gm/dl (3.1-4.5); CREATININE 4.11 mg/dL (0.55-1.02); PHOSPHOROUS 4.9 mg/dL (2.5-4.9); POTASSIUM 5.1 mmol/L (3.5-5.1); TOTAL PROTEIN 5.7 gm/dL (6.4-8.2)
[2018-01-18 08:42] LABS: BURR CELLS FEW; PLATELET SUFFICIENCY NORMAL (NORMAL); POLYCHROMASIA SLIGHT; TOTAL CELLS COUNTED 100 #CELLS
[2018-01-18 08:44] LABS: WHITE BLOOD COUNT 39.4 10*3/uL (4.8-10.8)
[2018-01-19] VITALS: BP 107/47
[2018-01-19 06:49] LABS: HEMATOCRIT 25.4 % (37.0-47.0); HEMOGLOBIN 7.9 g/dl (12.0-16.0); MEAN CELL VOLUME 91.4 fl (81.0-99.0); MEAN CORPUSCULAR HGB 28.4 pg (27.0-31.0); MEAN CORPUSCULAR HGB CONC 31.1 g/dl (33.0-37.0); MEAN PLATELET VOLUME 9.6 fl (9.6-12.3); PLATELET COUNT AUTOMATED 343 10*3/uL (130-400); RED BLOOD COUNT 2.78 10*6/uL (4.10-5.10); RED CELL DISTRI WIDTH 17.2 % (0-14.5); WHITE BLOOD COUNT 32.9 10*3/uL (4.8-10.8)
[2018-01-19 06:56] LABS: ALBUMIN 1.3 gm/dl (3.1-4.5); CREATININE 4.6 mg/dL (0.55-1.02); PHOSPHOROUS 5.1 mg/dL (2.5-4.9); POTASSIUM 4.4 mmol/L (3.5-5.1)
[2018-01-19 07:29] LABS: BURR CELLS FEW; PLATELET SUFFICIENCY NORMAL (NORMAL); POLYCHROMASIA SLIGHT; TOTAL CELLS COUNTED 100 #CELLS
[2018-01-19 08:00] VITALS: BP 118/50
[2018-01-19 12:00] VITALS: BP 118/87
[2018-01-19 16:00] VITALS: BP 102/51; BP 121/56
[2018-01-19 20:00] VITALS: BP 115/53
[2018-01-20] VITALS: BP 110/55
[2018-01-20 07:20] LABS: HEMATOCRIT 26.1 % (37.0-47.0); HEMOGLOBIN 8.3 g/dl (12.0-16.0); MEAN CELL VOLUME 90.9 fl (81.0-99.0); MEAN CORPUSCULAR HGB 28.9 pg (27.0-31.0); MEAN CORPUSCULAR HGB CONC 31.8 g/dl (33.0-37.0); PLATELET COUNT AUTOMATED 321 10*3/uL (130-400); RED BLOOD COUNT 2.87 10*6/uL (4.10-5.10); RED CELL DISTRI WIDTH 17.3 % (0-14.5)
[2018-01-20 07:33] LABS: ALBUMIN 1.3 gm/dl (3.1-4.5); CREATININE 5.12 mg/dL (0.55-1.02); PHOSPHOROUS 4.3 mg/dL (2.5-4.9); POTASSIUM 3.8 mmol/L (3.5-5.1)
[2018-01-20 08:00] VITALS: BP 94/55
[2018-01-20 08:05] LABS: BURR CELLS MODERATE; PLATELET SUFFICIENCY NORMAL (NORMAL); POLYCHROMASIA SLIGHT; TOTAL CELLS COUNTED 100 #CELLS; TOXIC GRANULATION MODERATE; VACUOLATION OF NEUTROPHILS SLIGHT
[2018-01-20 12:00] VITALS: BP 107/55
== END 2018-01-20 16:22 | disposition hospice, home (50) | DRG 871 ==
LOC: ED 10:53 → 5E 12:11 → EDHOLD 12:11 → 5E 12:19
PROVIDERS: Emergency Medicine; Hospitalist; Internal Medicine Nephrology; Student in an Organized Health Care Education/Training Program
PROC: 02HV33Z Insertion of Infusion Device into Superior Vena Cava, Percutaneous Approach (ICD-10-PCS; principal; 2018-01-18)
PROC: B548ZZA Ultrasonography of Superior Vena Cava, Guidance (ICD-10-PCS; principal; 2018-01-18)
DX: A41.9 Sepsis, unspecified organism (principal); E43 Unspecified severe protein-calorie malnutrition; N17.0 Acute kidney failure with tubular necrosis; G93.41 Metabolic encephalopathy; A04.72 Enterocolitis due to Clostridium difficile, not specified as recurrent; N18.4 Chronic kidney disease, stage 4 (severe); E87.1 Hypo-osmolality and hyponatremia; N39.0 Urinary tract infection, site not specified; I50.42 Chronic combined systolic (congestive) and diastolic (congestive) heart failure; I13.0 Hypertensive heart and chronic kidney disease with heart failure and stage 1 through stage 4 chronic kidney disease, or unspecified chronic kidney disease; E87.5 Hyperkalemia; R65.20 Severe sepsis without septic shock; E87.8 Other disorders of electrolyte and fluid balance, not elsewhere classified; Z66 Do not resuscitate; Z51.5 Encounter for palliative care; R00.0 Tachycardia, unspecified; D72.810 Lymphocytopenia; D72.9 Disorder of white blood cells, unspecified; D64.9 Anemia, unspecified; E66.3 Overweight; E78.5 Hyperlipidemia, unspecified; E03.9 Hypothyroidism, unspecified; E53.8 Deficiency of other specified B group vitamins; K21.9 Gastro-esophageal reflux disease without esophagitis; F32.9 Major depressive disorder, single episode, unspecified; E11.65 Type 2 diabetes mellitus with hyperglycemia; E11.22 Type 2 diabetes mellitus with diabetic chronic kidney disease; N20.0 Calculus of kidney; F41.9 Anxiety disorder, unspecified; Z79.82 Long term (current) use of aspirin; Z79.4 Long term (current) use of insulin; Z88.1 Allergy status to other antibiotic agents; Z88.5 Allergy status to narcotic agent; Z88.2 Allergy status to sulfonamides; Z88.8 Allergy status to other drugs, medicaments and biological substances; Z90.710 Acquired absence of both cervix and uterus; Z90.49 Acquired absence of other specified parts of digestive tract; Z82.49 Family history of ischemic heart disease and other diseases of the circulatory system; Z83.3 Family history of diabetes mellitus; Z80.9 Family history of malignant neoplasm, unspecified; Z91.81 History of falling; Z68.24 Body mass index [BMI] 24.0-24.9, adult; R32 Unspecified urinary incontinence

== ENCOUNTER 2018-01-20 16:27 | Inpatient (IN) | payer OTHER, MEDICARE ==
[~2018-01-20] VITALS: Ht 162.6 cm; Wt 73.5 kg
[~2018-01-20 16:27] MED LIST changes: +DULCOLAX10 M1 SC; +FLEET MINERAL133 ML PO; +MOM30 M1 PO; +NOVOLOG100 UNIT/1 SC; +PERCOCET 5-3251 EACH PO; +RENAL-VITE TAB0.8 MG PO; +VITAMIN C500 M8 PO; +ZINC-220220 MG PO
[2018-01-20 16:35] VITALS: BP 112/77
[2018-01-21] VITALS: BP 123/51
[2018-01-21 06:00] VITALS: BP 102/76
[2018-01-21 08:00] VITALS: BP 102/45
[2018-01-21 16:00] VITALS: BP 99/85
[2018-01-22] VITALS: BP 85/37
[2018-01-22 08:00] VITALS: BP 74/36
[2018-01-22 16:00] VITALS: BP 100/75
== END 2018-01-23 01:14 | disposition expired | DRG 871 ==
LOC: 5E 16:27
DX: A41.9 Sepsis, unspecified organism (principal); E43 Unspecified severe protein-calorie malnutrition; N17.0 Acute kidney failure with tubular necrosis; G93.41 Metabolic encephalopathy; I50.42 Chronic combined systolic (congestive) and diastolic (congestive) heart failure; E87.1 Hypo-osmolality and hyponatremia; N39.0 Urinary tract infection, site not specified; N18.5 Chronic kidney disease, stage 5; I13.2 Hypertensive heart and chronic kidney disease with heart failure and with stage 5 chronic kidney disease, or end stage renal disease; Z68.45 Body mass index [BMI] 70 or greater, adult; Z51.5 Encounter for palliative care; Z66 Do not resuscitate; E87.5 Hyperkalemia; E87.8 Other disorders of electrolyte and fluid balance, not elsewhere classified; D64.9 Anemia, unspecified; R65.20 Severe sepsis without septic shock; D72.818 Other decreased white blood cell count; B96.89 Other specified bacterial agents as the cause of diseases classified elsewhere; D72.810 Lymphocytopenia; D72.9 Disorder of white blood cells, unspecified; E66.3 Overweight; E78.5 Hyperlipidemia, unspecified; E53.8 Deficiency of other specified B group vitamins; E55.9 Vitamin D deficiency, unspecified; E11.22 Type 2 diabetes mellitus with diabetic chronic kidney disease; K21.9 Gastro-esophageal reflux disease without esophagitis; F41.9 Anxiety disorder, unspecified; F32.9 Major depressive disorder, single episode, unspecified; E11.65 Type 2 diabetes mellitus with hyperglycemia; Z79.4 Long term (current) use of insulin